=== PATIENT | male | born 1995 | race Hispanic/Latino ===

== ENCOUNTER 2019-11-10 06:33 | Day surgery (SDC) | payer MEDICAID ==
[~2019-11-10] VITALS: Ht 162.6 cm; Wt 44.2 kg
[2019-11-10] VITALS (8 sets, daily range): BP systolic 82–116; BP diastolic 36–77
[2019-11-10] MEDS ORDERED: SODIUM CHLORIDE 0.9% 1000ML 1,000 ML IV ONE (07:41)
[2019-11-10] MEDS ORDERED: PROPOFOL 10 MG/ML 20ML VIAL IV ONE (08:06)
== END 2019-11-10 09:00 | disposition home or self-care (01) ==
LOC: DAH 06:33
PROVIDERS: ATTEND Internal Medicine Gastroenterology
DX: R10.13 Epigastric pain (principal); K21.0 Gastro-esophageal reflux disease with esophagitis; K29.00 Acute gastritis without bleeding; R63.0 Anorexia; R63.4 Abnormal weight loss; Z98.890 Other specified postprocedural states; Z79.899 Other long term (current) drug therapy
CPT/HCPCS: 43239; 78227; A4215; A4221; A4222; A4223; A4606; A4620; A4657; A4663; A9537; J2704; J7030